=== PATIENT | male | born 1980 | race Caucasian/White ===

== ENCOUNTER 2021-04-02 20:45 | Emergency (ER) | payer BC ==
[2021-04-02] MEDS ORDERED: LIDOCAINE 1%/EPI 1:100000 (20 ML MULTI DOSE VIAL) INF ONE (20:59)
[2021-04-02] MEDS ORDERED: LIDO 2%/EPI 1:200000 PRESRVFRE (20 ML SDVIAL) ONE (20:59)
[2021-04-02 21:05] VITALS: BP 117/82; PULSE 81; TEMP 98.2; BMI 35.2
[2021-04-02] MEDS ORDERED: BACITRACIN 15 GM TUBE TOPICAL OINTMENT TP ONE (21:24)
== END 2021-04-02 21:36 | disposition home or self-care (01) ==
LOC: FER 20:45
PROC: 0HQLXZZ Repair Left Lower Leg Skin, External Approach (ICD-10-PCS; principal; 2021-04-02)
DX: S81.012A Laceration without foreign body, left knee, initial encounter (principal)
CPT/HCPCS: 99284-25

== ENCOUNTER 2021-04-11 11:07 | Emergency (ER) | payer BC ==
[2021-04-11 11:16] VITALS: BP 153/98; PULSE 78; TEMP 98.3; BMI 35.2
== END 2021-04-11 11:37 | disposition home or self-care (01) ==
LOC: FER 11:07
DX: Z48.00 Encounter for change or removal of nonsurgical wound dressing (principal)
CPT/HCPCS: 99281-25

== ENCOUNTER 2021-04-17 11:42 | Emergency (ER) | payer BC ==
[2021-04-17 11:49] VITALS: BP 150/90; PULSE 86; TEMP 99.3; BMI 35.2
== END 2021-04-17 12:02 | disposition home or self-care (01) ==
LOC: FER 11:42
DX: Z48.02 Encounter for removal of sutures (principal)
CPT/HCPCS: 99281-25